=== PATIENT | male | born 2000 | race Caucasian/White ===

== ENCOUNTER 2024-07-09 06:35 | Emergency (ER) | payer BC ==
[~2024-07-09] VITALS: Ht 185.4 cm; Wt 66.2 kg
[2024-07-09 06:37] VITALS: TEMP 97.8
[2024-07-09] MEDS: HYDROCODONE/APAP 5MG-325MG TAB PO ONE (07:36)
[2024-07-09 08:00] VITALS: PULSE 71; RESP 17
[2024-07-09 08:30] VITALS: BP 121/69; PULSE 72; RESP 16; TEMP 97.6; O2SAT 97
== END 2024-07-09 08:27 | disposition home or self-care (01) ==
LOC: FSED 06:52
DX: R07.81 Pleurodynia (principal); Z11.52 Encounter for screening for COVID-19; F17.210 Nicotine dependence, cigarettes, uncomplicated
CPT/HCPCS: 0223U; 71046; 80053; 84484; 85025; 85379; 87400; 93005; 99283